=== PATIENT | male | born 1935 | race Caucasian/White ===

== ENCOUNTER 2025-01-01 18:12 | Emergency (ER) | payer MEDICARE, OTHER, SELFPAY ==
[2025-01-01 18:19] VITALS: BP 204/99
[2025-01-01 18:45] LABS: Urine Albumin Negative (Neg - Trace); Urine Bilirubin Negative (Negative); Urine Character Clear (Clear); Urine Color Yellow; Urine Glucose Negative (Negative); Urine Ketone Negative (Negative); Urine Leukocyte Negative (Negative); Urine Nitrite Negative (Negative); Urine Occult Blood 3+ (Negative); Urine Urobilinogen Negative (Neg - 1+)
[2025-01-01 18:53] VITALS: BP 172/69
[2025-01-01 18:54] VITALS: BMI 26.7
[2025-01-01 18:57] LABS: Urine Squamous Cell 0-2 /LPF (Few)
[2025-01-01 18:58] LABS: Urine Bacteria Few (Negative); Urine White Cell 0-2 /HPF (0-5)
[2025-01-01 19:00] VITALS: BP 171/93
[2025-01-01 19:26] LABS: ALT (SGPT) 19 U/L (0-50); AST (SGOT) 25 U/L (17-59); Alkaline Phosphatase 83 U/L (38-126); Blood Urea Nitrogen 22 mg/dl (9-20); Calcium 8.5 mg/dl (8.4-10.2); Carbon Dioxide 26 mmol/L (22-30); Chloride 98 mmol/L (98-107); Estimated Creatinine Clearance 50 ml/min; Glucose 132 mg/dl (70-99); Potassium 3.8 mmol/L (3.5-5.1); Sodium 132 mmol/L (135-145); Total Bilirubin 0.8 mg/dl (0.2-1.3); Total Protein 6.9 g/dl (6.3-8.2); eGFR > 60.00
[2025-01-01 19:36] LABS: Lipase 111 U/L (23-300)
[2025-01-01 19:41] LABS: % Basophils 0.4 % (0-2); % Eosinophils 0.6 % (0-6); % Immature Granulocytes 0.7 % (0-0.5); % Lymphocytes 33.3 % (20.5-51.1); % Monocytes 10.6 % (1.7-9.3); % Neutrophils 54.4 % (42.2-75.2); Absolute Eosinophils 0.1 10^3/uL (0-0.7); Absolute Immature Granulocytes 0.1 10^3/uL (0-0.05); Absolute Neutrophils 4.9 10^3/uL (1.4-6.5); Hemoglobin 10.7 g/dL (13.0-18.0); Mean Corp Hgb Conc. 33.4 g/dL (33.0-37.0); Mean Corpuscular Hgb 27.6 pg (27.0-31.0); Mean Corpuscular Volume 82.5 fL (80.0-94.0); Mean Platelet Volume 12.2 fL (7.4-10.4); Nucleated Red Blood Cells % 0 % (-); Platelet Count 151 10^3/uL (130-400); Red Blood Cell Count 3.88 10^6/uL (4.70-6.10); Red Cell Dist. Width 16.8 % (11.5-14.5)
[2025-01-01 20:00] VITALS: BP 172/81
[2025-01-01 23:01] VITALS: BP 165/77
--- NOTE | 2025-01-02 00:11 | ED.GENMED ---
History of Present Illness
General
Chief Complaint: Male Genito-Urinary Symptoms
Source: patient
Exam Limitations: none
Time Seen by Provider: 01/01/25 18:36
Nursing documentation reviewed up to this point in time: agreed with
History of Present Illness
History of Present Illness:
Patient to ED with complaint of constipation and urinary retention. Bladder scan was completed in triage. >700cc seen on scan. Mckeon placed in triage and drained immediate 750cc urine. Patient states he has been constipated. Last BM 3 days ago.
States he has the urge to go but can not pass stool. He took 2 doses of maalox this AM followed by Dulcolax 4 tabs. He was still unable to pass stool. He was able to urinate early this AM but has not been able to void since. Brought to ED by
spouse for eval.
Past History
Past History
ED Past Medical History: CAD, HTN and Hypercholesterolemia
ED Past Surgical History: Cardiac
Social History
Tobacco: Non-smoker
Alcohol: Other
Drug: None
Personal:
Living: with family
Employment: Retired
Family History
Family History: Other
Review of Systems
Review of Systems
Allergies reviewed?: Yes
All Other Systems: ROS reviewed and negative except as documented in HPI and ROS
Constitutional: Reports no symptoms
EENT: Reports no symptoms
Respiratory: Reports no symptoms
Cardiac: Reports no symptoms
ABD/GI: Reports constipated
: Reports difficulty voiding
Musculoskeletal: Reports no symptoms
Skin: Reports no symptoms
Neurological: Reports no symptoms
Psychiatric: Reports no symptoms
Phy Exam
General Physical Exam
General Presentation: well appearing and no apparent distress
General age: appears stated age
General Skin: warm and dry
General Habitus: normal
Cardiovascular Exam
Cardiovascular Exam: regular rate/rhythm
Pulmonary Exam
Pulmonary Exam: lungs clear and no respiratory distress
Gastrointestinal Exam
Gastrointestinal Exam: normal bowel sounds, non tender, soft, no organomegaly, no pulsatile mass, non distended and no cva tenderness
Rectal Exam: impacted stool (Large volume of impacted soft stool digitally removed. He was then given MOM enema and passed a very large amt of stool. No further complaints) and soft stool
Stool: brown
Musculoskeletal Exam
Musculoskeletal Exam: full ROM
Skin Exam
Skin Exam: normal color, warm/dry and no rash
Psychiatric Exam
Psychiatric Exam: normal mood/affect
Course
Orders/Labs/Results
Orders:
Orders
01/01/25 18:13
Electrocardiogram (*1) Urgent
Reason for Study: Abdominal Pain
EKG- Treatment ONCE
01/01/25 18:37
Mckeon Placement- Treatment ONCE
Reason for insertion: Acute Retention
01/01/25 18:40
Urinalysis Reflex To Culture Urgent
Date Specimen was Collected: 01/01/25
Time Specimen was Collected: 18:13
Urine Microscopic Reflex Cult Urgent
01/01/25 18:45
Abdomen Xray - 1 View [CR Abdomen - 1 View] Urgent
Comment:
Reason For Exam: constipation and urine retention
01/01/25 19:05
Complete Blood Count/With Diff Stat
Comprehensive Metabolic Panel Urgent
Lipase Urgent
01/01/25 21:05
Enema- Treatment ONCE
Type: Milk of Molasses
Abnormal Lab Results
01/01/25 01/01/25
18:40 19:05
RBC 3.88 L 10^6/uL
(4.70-6.10)
Hgb 10.7 L g/dL
(13.0-18.0)
Hct 32.0 L %
(39.0-52.0)
RDW 16.8 H %
(11.5-14.5)
MPV 12.2 H fL
(7.4-10.4)
Abs Immat Gran (auto) 0.1 H 10^3/uL
(0-0.05)
Absolute Monos (auto) 1.0 H 10^3/uL
(0.1-0.6)
Immature Gran % 0.7 H %
(0-0.5)
Monocytes % 10.6 H %
(1.7-9.3)
Sodium 132 L mmol/L
(135-145)
BUN 22 H mg/dl
(9-20)
Glucose 132 H mg/dl
(70-99)
Ur Occult Blood Reflex 3+ A
(Negative)
Urine RBC 3-6 A /HPF
(0-2)
Urine Bacteria (Reflex) Few A
(Negative)
01/01/25 19:05
01/01/25 19:05
Vital Signs
Initial and Last Documented VS:
Initial Vital Signs
Temp Pulse Resp BP Pulse Ox
98.2 F 80 18 204/99 100
01/01/25 18:19 01/01/25 18:19 01/01/25 18:19 01/01/25 18:19 01/01/25 18:19
Last Documented Vital Signs
Temp Pulse Resp BP Pulse Ox
98.2 F 80 18 165/77 95
01/01/25 18:19 01/01/25 18:19 01/01/25 18:19 01/01/25 23:01 01/01/25 20:13
*Critical Care Note
Total Time (30-74mins, 75-104mins- exclusive of procedures): Not Applicable
Update Note
Update Note:
Large amt of rectal stool note on XRAY. Able to digitally disimpact a large amt of stool He was then givenMOM enema by RN and passed a large amt of stool after. Mckeon was removed and he has been able to pass a small amt of urine with BM.
Retention most likely due to his constipation. He would like to try to urinate without catheter. WIll discharge home, will return if retention returns. He was given instructions on s/s to return to ED and he is agreeable plan.
ED Attending Note
-
Portions of this chart may have been created with voice recognition software.� Occasional wrong word or��sound alike� substitutions may have occurred due to the inherent limitations of voice recognition software.
Discharge Plan
Departure
Patient Disposition: Home (Routine Discharge)
Date of Disposition: 01/02/25
Time of Disposition: 00:09
Patient with high blood pressure during this ER visit?: No
Condition: Good
Covid-19: Not Applicable
Discharge Problem:
Acute constipation
Instructions: Constipation, Adult (DC)
Prescriptions:
No Action
carvedilol [Coreg] 25 MG tablet
25 mg PO BID
atorvastatin 10 MG tablet
10 mg PO QPM
aspirin 81 MG tablet,delayed release (DR/EC)
81 mg PO DAILY
alprazolam 0.5 MG tablet
0.5 mg PO TID PRN (Reason: anxiety)
Patient Comments:
11/08/2022: last filled 10/12/22, 90 tabs for 30 days from [facility]
tamsulosin 0.4 MG capsule
0.8 mg PO DAILY
valsartan [Diovan] 320 MG tablet
320 mg PO DAILY
hydralazine 50 MG tablet
50 mg PO BID
venlafaxine 225 MG tablet extended release 24hr
225 mg PO DAILY
omega [id number] oil [Fish Oil] 1 EACH capsule
1,400 cap PO DAILY
multivitamin Tablet
1 tab PO DAILY
furosemide 20 mg tablet
20 mg PO [id number]
Rx Instructions:
daily for 4 days, then back to 4 days a week
ferrous sulfate 325 mg (65 mg iron) tablet
325 mg PO DAILY Qty: 30 0RF
Rx Instructions:
New medication
Vitamin D3 capsule
1,000 PO DAILY AT 0700
simethicone [Gas-X Extra Strength] 125 mg Capsule
250 mg PO DIRECTED
Sutab 1.479-0.188- 0.225 gram Tablet
0 tab PO DIRECTED
lidocaine 4 % adhesive patch,medicated
1 patch topical Q24H PRN (Reason: Pain) Qty: 10 0RF
Referrals:
Olimpia Pickett MD [Family Provider] -
Activity Restrictions/Additional Instructions:
Return to the emergency department if you do not pass urine within the next 10 hours, or you feel the need to urinate but are unable to.
Interventions
Interventions:
*Risk Screen - Suicide Last Done: 01/01/25 19:09
*General Assessment Last Done: 01/01/25 19:09
*ED- Fall Risk Assessment Last Done: 01/01/25 19:09
*ED COVID-19 Vaccine History Last Done: 01/01/25 19:09
CI-Ocaddh-Gvanpvpdvq Assessment Last Done: 01/01/25 19:09
ED-Male Genitourinary Assessment Last Done: 01/01/25 19:09
Discharge Date and Time
Print Language: NICARAGUAN
== END 2025-01-02 00:24 | disposition home or self-care (01) ==
LOC: EMR 18:12
PROVIDERS: Student in an Organized Health Care Education/Training Program; EMERGENCY PHYSICIAN Emergency Medicine; FAMILY PHYSICIAN Internal Medicine
DX: K59.09 Other constipation (principal); R33.9 Retention of urine, unspecified; I25.10 Atherosclerotic heart disease of native coronary artery without angina pectoris; E78.00 Pure hypercholesterolemia, unspecified; I10 Essential (primary) hypertension; K57.90 Diverticulosis of intestine, part unspecified, without perforation or abscess without bleeding; F41.9 Anxiety disorder, unspecified; E11.9 Type 2 diabetes mellitus without complications; Z79.82 Long term (current) use of aspirin; Z95.1 Presence of aortocoronary bypass graft
CPT/HCPCS: 99285; 51798; 51701; 74018; 80053; 81003; 81015; 83690; 85025; 93005